=== PATIENT | female | born 1965 | race Caucasian/White ===

== ENCOUNTER 2018-01-29 01:27 | Emergency (ER) | payer OTHER ==
[~2018-01-29] VITALS: Ht 162.6 cm; Wt 102.2 kg
[~2018-01-29 01:27] MED LIST: AMOXICILLIN500 M1 PO; ANAPROX DS550 M1 PO; ATIVAN0.5 MG PO; BENZONATATE200 MG; CEFDINIR300 MG; CRESTOR10 MG PO; CRESTOR20 MG; FLOMAX0.4 MG PO; HYDROCODON-ACE1 EAC7 PO; KEFLEX500 MG PO; MACROBID100 MG PO; MONTELUKAST SOD10 MG; MOTRIN800 MG PO; OMEPRAZOLE40 M1; PERCOCET 5/31 TABLET PO; PREDNISONE20 MG; PROAIR HFA8.5 GM; PROMETHAZINE HC25 M1 PO; PULMICORT180 MICROG; TYLENOL325 M1 PO; Tylenol Regular Stre PO; ZOFRAN4 MG PO; ZYRTEC OTC
[2018-01-29 02:13] LABS: HEMATOCRIT 39.2 % (36.0-46.0); HEMOGLOBIN 13.2 G/DL (11.9-15.5); MCH 31.7 PG (29.0-34.0); MCHC 33.7 G/DL (30.0-36.0); PLATELET COUNT 256 K/uL (156-360); RBC DIS.WIDTH-CV 12.5 % (11.8-14.6); RBC DIS.WIDTH-SD 43.4 % (39-53); RED BLOOD COUNT 4.17 M/uL (3.80-5.20); WHITE BLOOD COUNT 10.5 K/uL (4.1-10.2)
[2018-01-29 02:35] LABS: ALBUMIN 4.2 g/dL (3.2-4.8); CHLORIDE 109 mEq/L (99-109); POTASSIUM 3.9 mEq/L (3.7-5.4); SODIUM 141 mEq/L (136-147)
[2018-01-29 02:37] LABS: GLUCOSE 117 mg/dL (70-99); TOTAL PROTEIN 7.2 g/dL (6.4-8.3)
[2018-01-29 02:39] LABS: TOTAL BILIRUBIN 0.3 mg/dL (0.0-1.0)
[2018-01-29 02:41] LABS: ALKALINE PHOSPHATASE 92 IU/L (3-129); CREATININE 0.8 mg/dL (0.6-1.3); GFR ESTIMATE (CALCULATED) > 59 mL/min/
[2018-01-29 02:42] LABS: UREA NITROGEN (BUN) 24 mg/dL (9-23)
[2018-01-29 02:43] LABS: AST (GOT) 19 IU/L (2-34)
[2018-01-29 02:44] LABS: ALT (GPT) 11 IU/L (3-49); LIPASE 24 U/L (1.0-51.0)
[2018-01-29 04:25] LABS: APPEARANCE SL.HAZY ((CLEAR)); BILIRUBIN NEGATIVE; BLOOD LARGE; COLOR YELLOW ((YELLOW)); GLUCOSE (STRIP) NEGATIVE; KETONES NEGATIVE; LEUKOCYTES NEGATIVE; NITRITE NEGATIVE; PROTEIN (STRIP) 30; UROBILINOGEN 0.2 MG/DL (0.2-1.0)
[2018-01-29 04:43] LABS: BACTERIA RARE /HPF; CALCIUM OXALATE CRYSTALS 1+ /HPF; EPITHELIAL CELLS RARE /HPF; MUCUS TRACE /LPF; RED BLOOD CELLS TNTC /HPF (0-5); UCUL ADDED? YES; WHITE BLOOD CELLS 0-5 /HPF (0-5)
[2018-01-29] MEDS ORDERED: PROMETHAZINE HC25 M1 PO (06:24)
[2018-01-29] MEDS ORDERED: PERCOCET 5/31 TABLET PO (06:24)
[2018-01-29] MEDS ORDERED: FLOMAX0.4 MG PO (06:24)
[2018-01-29 07:50] VITALS: BP 134/80
[2018-01-29 09:32] LABS: QUANTITATIVE HCG < 4.0 MIU/ML
== END 2018-01-29 07:50 | disposition home or self-care (01) ==
LOC: EME 01:27
DX: N20.1 Calculus of ureter (principal); Z87.442 Personal history of urinary calculi; J45.909 Unspecified asthma, uncomplicated; E78.5 Hyperlipidemia, unspecified; Z79.51 Long term (current) use of inhaled steroids; Z90.710 Acquired absence of both cervix and uterus; Z87.19 Personal history of other diseases of the digestive system; Z88.5 Allergy status to narcotic agent; Z88.2 Allergy status to sulfonamides; Z88.1 Allergy status to other antibiotic agents
CPT/HCPCS: 74176; 80053; 81003; 83690; 84702; 85027; 87086; 99281; 99285; J1885; J2765; J3010; J7030